=== PATIENT | male | born 1955 | race Caucasian/White ===

== ENCOUNTER 2022-04-20 21:24 | Emergency (ER) | payer OTHER ==
--- NOTE | 2022-04-20 21:28 | NUR ---
PATIENT ASSESSED AND DISCHARGED PRIOR TO TRIAGE BY ERMD.
== END 2022-04-20 21:28 ==
LOC: EDSEX 21:24 → MED 21:24
DX: Z02.89 Encounter for other administrative examinations (principal); V29.9XXA Motorcycle rider (driver) (passenger) injured in unspecified traffic accident, initial encounter; Y93.89 Activity, other specified; Y92.89 Other specified places as the place of occurrence of the external cause; Y99.8 Other external cause status
CPT/HCPCS: 99283